=== PATIENT | male | born 1950 | race Caucasian/White ===

== ENCOUNTER 2024-06-18 13:07 | Inpatient (IN) | payer MEDICARE, OTHER ==
[2024-06-18] MEDS: Ondansetron 4 MG/2 ML SDV IVPUSH ONE (14:06)
[2024-06-18] MEDS: Morphine 4 MG/ML VIAL IVPUSH ONE (14:07)
[2024-06-18] MEDS: Sodium Chloride 0.9% 1,000 ML IV SCH ×3 (14:07→22:12)
[2024-06-18 14:15] LABS: HEMATOCRIT 55.9 % (38.3-50.1); HEMOGLOBIN 18.7 g/dL (12.9-17.7); MEAN CORPUSCULAR HEMOGLOBIN 31.5 pg (27.0-33.3); MEAN CORPUSCULAR HGB CONC 33.5 g/dL (28.7-35.3); MEAN PLATELET VOLUME 8.2 fL (6.7-11.0); PLATELET COUNT,PLT 306 x10(3)uL (117-477); RED BLOOD CELL COUNT 5.95 x10(6)uL (3.90-5.90); RED CELL DISTRIBUTION WIDTH 13.9 % (12.4-15.0); WHITE BLOOD CELL COUNT,WBC 19.8 x10-3/uL (3.2-10.1)
[2024-06-18 14:25] LABS: A/G RATIO 0.4; ALANINE AMINOTRANSFERASE,ALT 31 U/L (12-36); ALBUMIN 2.3 g/dL (3.2-4.6); ALKALINE PHOSPHATASE 80 IU/L (56-112); ASPARTATE AMNIOTRANSFERASE,AST 14 IU/L (5-25); BLOOD UREA NITROGEN,BUN 27 mg/dL (7-18); BUN/CREATININE RATIO 12.9 (9-20); CARBON DIOXIDE,CO2 26 mmol/L (21-32); CHLORIDE,CL 98 mmol/L (100-110); ESTIMATED GFR 33 mL/min (>60); GLUCOSE RANDOM 182 mg/dL (80-116); MAGNESIUM 1.6 mg/dL (1.8-2.5); POTASSIUM,K 3.9 mmol/L (3.5-5.3); PROTEIN TOTAL,TP 8.6 g/dL (6.0-8.0); SODIUM,NA 140 mmol/L (135-145)
[2024-06-18 14:32] LABS: LYMPHOCYTES PERCENT MAN 8 % (13-37); SEG NEUTROPHILS PERCENT MAN 81 % (46-82)
[2024-06-18 14:33] LABS: BASOPHILS PERCENT MAN 1 % (0-2); EOSINOPHILS PERCENT MAN 1 % (0-5); MONOCYTES PERCENT MAN 9 % (4-12)
[2024-06-18 14:36] LABS: CALCIUM 9.9 mg/dL (8.6-10.2); CREATININE 2.1 mg/dL (0.70-1.30)
[2024-06-18] MEDS ORDERED: Magnesium Sulfate/Water Premix 2 GM in Premix Bag 1 BAG IV ONE (15:16)
[2024-06-18] MEDS: Magnesium Sulfate/Water Premix 2 GM in Premix Bag 1 BAG IV ONE (15:28)
[2024-06-18 15:55] LABS: APPEARANCE,URINE SLIGHTLY CLOUDY (CLEAR); BACTERIA,URINE FEW (NS); BILIRUBIN,URINE SMALL (NEGATIVE); COLOR,URINE YELLOW (YELLOW); GLUCOSE,URINE NORMAL (NORMAL); HYALINE CASTS,URINE MANY (NS); KETONES,URINE NEGATIVE (NEGATIVE); LEUKOCYTE ESTERASE,URINE SMALL (NEGATIVE); NITRITE,URINE NEGATIVE (NEGATIVE); OCCULT BLOOD,URINE NEGATIVE (NEGATIVE); PROTEIN,URINE 100 mg/dL (NEGATIVE); RBC,URINE 0-5 (0-5); SQUAMOUS EPITHELIAL CELLS,UR OCCASIONAL (NS,R,O); UROBILINOGEN,URINE NORMAL (NEGATIVE); WBC,URINE 0-5 (0-5)
[2024-06-18] MEDS ORDERED: Piperacillin/Tazobactam 2.25 GM in Sodium Chloride 0.9% 50 ML IV SCH (17:15)
[2024-06-18] MEDS: Piperacillin/Tazobactam 4.5 GM in Sodium Chloride 0.9% 100 ML IV ONE (17:31)
[2024-06-18] MEDS ORDERED: Acetaminophen 650 MG Supp RECTAL PRN (17:49)
[2024-06-18] MEDS ORDERED: Acetaminophen 325 MG Tab PO PRN (17:49)
[2024-06-18 17:56] LABS: AMPHETAMINES SCREEN, URINE NEGATIVE (NEGATIVE); BARBITURATE SCREEN,URINE NEGATIVE (NEGATIVE); BENZODIAZEPINES SCREEN,URINE NEGATIVE (NEGATIVE); BUPRENORPHINE SCREEN,URINE NEGATIVE (NEGATIVE); METHADONE SCREEN, URINE NEGATIVE (NEGATIVE); METHAMPHETAMINE SCREEN, URINE NEGATIVE (NEGATIVE); OXYCODONE SCREEN,URINE NEGATIVE (NEGATIVE); THC SCREEN,URINE NEGATIVE (NEGATIVE)
[2024-06-18] MEDS ORDERED: Ondansetron 4 MG/2 ML SDV IVPUSH PRN (18:21)
[2024-06-18] MEDS: Heparin Sodium 5,000 Units/ML Vial SUBCUT SCH (18:28)
[2024-06-18] MEDS: VANCOmycin 1.75 GM/350 ML 1.75 GM in Premix Bag 1 BAG IV ONE (18:28)
[2024-06-18 19:01] LABS: INFLUENZA A NAA NEGATIVE (NEGATIVE); INFLUENZA B NAA NEGATIVE (NEGATIVE); RESPIRATORY SYNCYTIAL VIR NAA NEGATIVE (NEGATIVE)
[2024-06-18 19:02] LABS: CORONAVIRUS COVID-19 NAA NEGATIVE (NEGATIVE)
[2024-06-18] MEDS: Piperacillin/Tazobactam 4.5 GM in Sodium Chloride 0.9% 100 ML IV SCH (22:21)
[2024-06-18] MEDS: Calcium Carbonate 500 MG Tab.Chew PO PRN (23:29)
[2024-06-19 06:37] LABS: BASOPHILS ABSOLUTE AUTO 0.1 x10-3/uL (0.0-0.3); BASOPHILS PERCENT AUTO 0.6 % (0.3-3.8); EOSINOPHILS ABSOLUTE AUTO 0.2 x10-3/uL (0.0-0.6); HEMOGLOBIN 14.1 g/dL (12.9-17.7); LYMPHOCYTES PERCENT AUTO 23.1 % (15.8-45.3); MEAN CORPUSCULAR HEMOGLOBIN 31.8 pg (27.0-33.3); MEAN CORPUSCULAR HGB CONC 33.6 g/dL (28.7-35.3); MEAN CORPUSCULAR VOLUME 94.6 fL (80.8-98.7); MEAN PLATELET VOLUME 8.2 fL (6.7-11.0); MONOCYTES ABSOLUTE AUTO 0.8 x10-3/uL (0.0-1.2); MONOCYTES PERCENT AUTO 9.2 % (5.5-15.2); NEUTROPHILS ABSOLUTE AUTO 5.6 x10-3/uL (1.7-6.9); NEUTROPHILS PERCENT AUTO 65.1 % (40.3-71.8); PLATELET COUNT,PLT 206 x10(3)uL (117-477); RED BLOOD CELL COUNT 4.43 x10(6)uL (3.90-5.90); RED CELL DISTRIBUTION WIDTH 13.6 % (12.4-15.0); WHITE BLOOD CELL COUNT,WBC 8.6 x10-3/uL (3.2-10.1)
[2024-06-19 06:47] LABS: ALANINE AMINOTRANSFERASE,ALT 17 U/L (12-36); ALBUMIN 2.6 g/dL (3.2-4.6); ALKALINE PHOSPHATASE 50 IU/L (56-112); ASPARTATE AMNIOTRANSFERASE,AST 16 IU/L (5-25); BILIRUBIN TOTAL 0.7 mg/dL (0.1-1.3); BLOOD UREA NITROGEN,BUN 22 mg/dL (7-18); BUN/CREATININE RATIO 18.3 (9-20); CALCIUM 7.3 mg/dL (8.6-10.2); CARBON DIOXIDE,CO2 23 mmol/L (21-32); CHLORIDE,CL 108 mmol/L (100-110); CREATININE 1.2 mg/dL (0.70-1.30); EST CRCL DRUG DOSING (CG) 57.45 mL/min; ESTIMATED GFR 64 mL/min (>60); GLUCOSE RANDOM 102 mg/dL (80-116); MAGNESIUM 1.9 mg/dL (1.8-2.5); PHOSPHORUS 2.9 mg/dL (2.6-4.6); POTASSIUM,K 3.9 mmol/L (3.5-5.3); PROTEIN TOTAL,TP 5.2 g/dL (6.0-8.0); SODIUM,NA 142 mmol/L (135-145)
[2024-06-19 09:15] VITALS: BP 115/47; PULSE 60
[2024-06-19] MEDS: Aspirin 81 MG Tab.EC PO SCH (09:48)
[2024-06-20 21:59] LABS: CREATININE, URINE - PER VOLUME 129 mg/dL; HOURS COLLECTED Not Provided hr; SODIUM, URINE - PER VOLUME 104 mmol/L; TOTAL VOLUME Not Provided mL
[2024-06-21 11:23] LABS: CREATININE,URINE - PER VOLUME 129 mg/dL; HOURS COLLECTED Not Provided hr; TOTAL VOLUME Not Provided mL
[2024-06-22 23:47] LABS: ADENOVIRUS 40/41 PCR Not Detected; ASTROVIRUS PCR Not Detected; CAMPYLOBACTER PCR Not Detected; CRYPTOSPORIDIUM PCR Not Detected; CYCLOSPORA CAYETANENSIS PCR Not Detected; ENTAMOEBA HISTOLYTICA PCR Not Detected; ENTEROAGGREGATIVE E. COLI PCR Not Detected; ENTEROPATHOGENIC E. COLI PCR Not Detected; ENTEROTOXIGENIC E. COLI PCR Not Detected; GIARDIA LAMBLIA PCR Not Detected; NOROVIRUS GI/GII PCR Not Detected; PLESIOMONAS SHIGELLOIDES PCR Not Detected; ROTAVIRUS A PCR Not Detected; SALMONELLA PCR Not Detected; SAPOVIRUS PCR Not Detected; SHIG/ENTEROINVASIVE E COLI PCR Not Detected; SHIGA TOXIN-PRODUC E. COLI PCR Not Detected; VIBRIO CHOLERAE PCR Not Detected; VIBRIO PCR Not Detected; YERSINIA ENTEROCOLITICA PCR Not Detected
== END 2024-06-19 09:22 | disposition left against medical advice (07) | DRG 872 ==
LOC: FB.ED 13:07 → FB.MS 16:07 → OBSVTOIN 17:41
PROVIDERS: ADMIT Internal Medicine; ATTEND Internal Medicine
DX: A41.9 Sepsis, unspecified organism (principal); N17.9 Acute kidney failure, unspecified; E87.20 Acidosis, unspecified; K52.9 Noninfective gastroenteritis and colitis, unspecified; E86.0 Dehydration; Z79.82 Long term (current) use of aspirin; F17.210 Nicotine dependence, cigarettes, uncomplicated; I73.9 Peripheral vascular disease, unspecified; I10 Essential (primary) hypertension; Z79.899 Other long term (current) drug therapy
CPT/HCPCS: 0241U; 36415; 71046; 74176; 80053; 80202; 80307; 81001; 82550; 82570; 83605; 83690; 83735; 84100; 84300; 85025; 87040; 87086; 87230; 87507; 93005; 99223; 99238; 99285; A9270-GY; J1644; J2270; J2405; J2543; J3372; J3475; J3490; J7030